=== PATIENT | female | born 1970 | race Two or more races ===

== ENCOUNTER 2017-08-04 06:27 | Emergency (ER) | payer MEDICAID, SELFPAY ==
[2017-08-04 06:29] VITALS: BP 133/86; PULSE 76; RESP 16; TEMP 36.8; O2SAT 100; BMI 29.9
--- NOTE | 2017-08-04 07:20 | ED.VISSUMM ---
- ER Visit Summary Date of Service: 08/04/17 Chief Complaint: [] Rash involving hands [place] History of Present Illness: The patient is a 46 F [] reports for the last week or so she has been rock hunting for [place] and had type proximal and polishing these rocks with cough for about a week or 2 she reports she developed some redness to her hands and now the skin has slightly become more irritated and she is constantly itching her hands and her forearms. This was fresh [place] there was no sore water or seawater she has no lesions elsewhere on her body just her upper extremities. She has no history of MRSA healthy individual no fever no cough no drainage the skin seems to peel but there is no blistering petechia or purpura she indicates she thought she saw few bugs coming out of these lesions but I cannot appreciate any bugs her chief complaint is that these lesions are quite itchy Physical Examination: [] She is in no distress her vital signs are unremarkable she is itching her hand she does have scattered red cowart small plaques measuring a few millimeters they are flat they are not tender she has full range of motion of all of her fingers. There is no petechia purpura blistering or breakdown there does seem to be a few areas where she has rubbed off the skin from itching again there is no drainage or warmth or signs of MRSA or infection that is obvious there is no signs of foreign body or any type of parasite or past Test Results: [] Emergency Department Course and Treatment: [] Long conversation with her I explained to her that exposure to water can predispose to many types of infectious types of etiologies is also a possibility this is related to staph or strep but there is no erythema just a red spots around her hands a few on her forearms at this time given the above of explained she will require more diagnostic management is nothing to culture, she will be started on Levaquin based on reference material recommendations, hydrocortisone ointment [id number] antihistamine such as Zyrtec or Claritin and she will follow-up with pick up man or her family physician and return for change in symptoms further she will avoid hunting for rocks avoid water her hands clean and dry Treatment Plan: [] Disposition: [] Home stable Impression: [] Nonspecific rash involving hands after [place] This note was generated with Dragon dictation software. It may contain incorrect words, spelling, and punctuation that were not noted in review of the chart prior to signing ED Disposition - Plan for ED Patient: Chief Complaint: Rash Referrals: [facility],Out of [Primary Care Provider] -
--- NOTE | 2017-08-04 07:23 | ED.DCSUM_ITS ---
- ER Visit Summary Date of Service: 08/04/17 Chief Complaint: [] Rash involving hands [place] History of Present Illness: The patient is a 46 F [] reports for the last week or so she has been rock hunting for MD and had type proximal and polishing these rocks with cough for about a week or 2 she reports she developed some redness to her hands and now the skin has slightly become more irritated and she is constantly itching her hands and her forearms. This was [place] there was no sore water or seawater she has no lesions elsewhere on her body just her upper extremities. She has no history of MRSA healthy individual no fever no cough no drainage the skin seems to peel but there is no blistering petechia or purpura she indicates she thought she saw few bugs coming out of these lesions but I cannot appreciate any bugs her chief complaint is that these lesions are quite itchy Physical Examination: [] She is in no distress her vital signs are unremarkable she is itching her hand she does have scattered red cowart small plaques measuring a few millimeters they are flat they are not tender she has full range of motion of all of her fingers. There is no petechia purpura blistering or breakdown there does seem to be a few areas where she has rubbed off the skin from itching again there is no drainage or warmth or signs of MRSA or infection that is obvious there is no signs of foreign body or any type of parasite or past Test Results: [] Emergency Department Course and Treatment: [] Long conversation with her I explained to her that exposure to water can predispose to many types of infectious types of etiologies is also a possibility this is related to staph or strep but there is no erythema just a red spots around her hands a few on her forearms at this time given the above of explained she will require more diagnostic management is nothing to culture, she will be started on Levaquin based on reference material recommendations, hydrocortisone ointment over-the- counter antihistamine such as Zyrtec or Claritin and she will follow-up with [employer] [facility] or her family physician and return for change in symptoms further she will avoid hunting for rocks avoid water her hands clean and dry Treatment Plan: [] Disposition: [] Home stable Impression: [] Nonspecific rash involving hands after [place] This note was generated with Dragon dictation software. It may contain incorrect words, spelling, and punctuation that were not noted in review of the chart prior to signing ED Disposition - Plan for ED Patient: Chief Complaint: Rash Referrals: [facility] Doctor,Out of [Primary Care Provider] -
--- NOTE | 2017-08-04 07:23 | ED.DEP ---
ED Disposition - Plan for ED Patient: Chief Complaint: Rash Instructions: Discharge Instructions for Cellulitis Prescriptions: Cetirizine HCl [Zyrtec] 10 mg PO DAILY #14 tab Levofloxacin [Levaquin] 750 mg PO DAILY 7 Days tab Hydrocortisone 1% Crm [Hytone] 1 applic TOPICAL BID #1 tube Referrals: [facility] Doctor,Out of [Primary Care Provider] -
--- NOTE | 2017-08-04 07:29 | ED.DEP ---
ED Disposition - Plan for ED Patient: Chief Complaint: Rash Instructions: Discharge Instructions for Cellulitis Prescriptions: Cetirizine HCl [Zyrtec] 10 mg PO DAILY #14 tab Levofloxacin [Levaquin] 750 mg PO DAILY 7 Days tab Hydrocortisone 1% Crm [Hytone] 1 applic TOPICAL BID #1 tube Referrals: [facility] Doctor,Out of [Primary Care Provider] - Chalo Currie MD [CONSULTING PHYSICIAN] -
[2017-08-04 07:32] VITALS: BP 147/100; PULSE 76; RESP 16; O2SAT 100
== END 2017-08-04 07:38 | disposition home or self-care (01) ==
PROVIDERS: Emergency Provider Emergency Medicine; Family Provider Nurse Practitioner Family; PCP Nurse Practitioner Family
DX: R21 Rash and other nonspecific skin eruption (principal)
CPT/HCPCS: 99282

== ENCOUNTER 2017-08-04 14:17 | Emergency (ER) | payer MEDICAID, SELFPAY ==
[2017-08-04 14:17] VITALS: BP 126/87; PULSE 77; RESP 16; TEMP 37; O2SAT 99; BMI 29.2
--- NOTE | 2017-08-04 14:54 | ED.VISSUMM ---
- ER Visit Summary Date of Service: 08/04/17 Chief Complaint: [] History of Present Illness: The patient is a 46 F [] Physical Examination: [] Test Results: [] Emergency Department Course and Treatment: [] Treatment Plan: [] Disposition: [] Impression: [] This note was generated with [employer] dictation software. It may contain incorrect words, spelling, and punctuation that were not noted in review of the chart prior to signing ED Disposition - Plan for ED Patient: Disposition: Home or Assisted Living Chief Complaint: Rash Diagnosis: Contact dermatitis Instructions: ED Dermatitis Contact Prescriptions: Prednisone 60 mg PO DAILY 5 Days #15 tab Referrals: Ashley Spencer, [facility] [Primary Care Provider] -
== END 2017-08-04 15:06 | disposition home or self-care (01) ==
PROVIDERS: Emergency Provider Emergency Medicine; Family Provider Nurse Practitioner Family; PCP Nurse Practitioner Family
DX: L25.9 Unspecified contact dermatitis, unspecified cause (principal)
CPT/HCPCS: 99282

== ENCOUNTER 2017-08-05 16:47 | Emergency (ER) | payer MEDICAID, SELFPAY ==
[2017-08-05 16:48] VITALS: BP 135/77; PULSE 73; RESP 28; TEMP 36.6; O2SAT 99; BMI 29.5
[2017-08-05 17:43] LABS: Absolute Lymphocyte Count 3.27 X10^3/ul (0.83-4.51); Absolute Neutrophil Count 3.1 X10^3/uL (2.0-7.7); Basophil# 0.01 X10^3/uL; Basophil% 0.1 % (0-1); Eosinophil# 0.21 X10^3/uL; Eosinophils% 2.9 % (0-5); Hematocrit 34.3 % (37-47); Hemoglobin 11.5 g/dl (12.0-15.0); Lymphocyte # 3.27 X10^3/ul (4.0); Lymphocyte % 45.3 % (19-41); Mean Corp Hgb Conc 33.5 g/gl (32-36); Mean Corpuscular Hgb 31.3 pg (27.0-32.0); Mean Corpuscular Volume 93.2 fL (81-99); Mean Platelet Vol. 9.8 fl (6.2-12.0); Monocyte# 0.63 X10^3/uL; Monocyte% 8.7 % (0-10); Neutrophil # 3.09 X10^3/uL (2.7-7.7); Neutrophil % 42.9 % (47-70); Platelet Count 210 K/mm3 (150-450); RBC Distribution Width CV 12.5 % (11.6-14.6); RBC Distribution Width SD 42.6 fl (35.1-43.9); Red Blood Count 3.68 M/mm3 (4.2-5.4); White Blood Count 7.2 K/mm3 (4.4-11.0)
[2017-08-05 17:49] LABS: POSITIVE COUNT NO; POSITIVE DIFFERENTIAL NO; POSITIVE MORPHOLOGY NO
[2017-08-05] MEDS: hydrOXYzine PAM 25 MG Capsule 50 MG PO (17:57)
--- NOTE | 2017-08-05 18:10 | ED.DCSUM_ITS ---
- ER Visit Summary Date of Service: 08/05/17 Chief Complaint: Patient has a rash she thinks there are parasites. History of Present Illness: The patient is a 46 F she thinks there are parasites in her skin, they are crawling in and out. She says there is very small and I cannot see them. She has no fever or chills. No chest pain shortness of breath no diarrhea. Physical Examination: She is tearful, she is not acutely psychotic but she is slightly delusional. She has multiple scratches of her skin but there are no insects, she says that certain substances bring them out but even after plicating her we were not able to see any insects. Emergency Department Course and Treatment: I did check a CBC there is no eosinophilia, I feel comfortable discharging her home with Vistaril and follow- up. Disposition: Discharged in stable condition Impression: Skin rash This note was generated with [employer] dictation software. It may contain incorrect words, spelling, and punctuation that were not noted in review of the chart prior to signing ED Disposition - Plan for ED Patient: Disposition: Home or Assisted Living Chief Complaint: General Illness Instructions: Understanding Delusional Disorders Prescriptions: Hydroxyzine Pamoate [Vistaril] 50 mg PO 4X/DAY PRN PRN #20 capsule PRN Reason: Itching Referrals: Ashley Spencer NP-C [Primary Care Provider] - 3-5 Days
== END 2017-08-05 18:14 | disposition home or self-care (01) ==
PROVIDERS: Emergency Provider Emergency Medicine; Family Provider Nurse Practitioner Family; PCP Nurse Practitioner Family
DX: R21 Rash and other nonspecific skin eruption (principal); E03.9 Hypothyroidism, unspecified; F31.9 Bipolar disorder, unspecified; Z79.899 Other long term (current) drug therapy
CPT/HCPCS: 85025; 99282

== ENCOUNTER → 2018-06-24 07:12 | Outpatient (CLI) | payer MEDICAID, SELFPAY ==
--- NOTE | 2018-06-24 12:07 | NEURO_ITS ---
NCS and/or EMG Patient Report Ordering Doctor: Kaleigh Brannon DATE OF SERVICE: 06/24/18 This is a bilateral upper extremity sensory and motor nerve conduction study performed on this 47-year-old female with a history of numbness weakness and pain for 6 months. Bilateral upper extremity sensory and motor nerve conduction studies performed demonstrating severe prolongation of the median motor and sensory distal latencies on the right side with reduction of amplitudes and conduction velocities. The median motor and sensory responses are also moderately slowed on the left side with intact amplitudes and conduction velocities. The ulnar motor and sensory and radial sensory responses are normal bilaterally. The rig ht median F wave latency is severely prolonged, the remainder of the F-wave latencies including the left median and bilateral ulnar responses are normal. Impression: Abnormal nerve conduction study of the bilateral upper extremities consistent with severe carpal tunnel syndrome on the right side, moderate on the left.
== END ==
PROVIDERS: Family Provider Nurse Practitioner Family; PCP Nurse Practitioner Family; Referring Provider Physician Assistant; Visit Provider Physician Assistant
DX: R20.2 Paresthesia of skin (principal)
CPT/HCPCS: 95911

== ENCOUNTER 2024-04-26 12:25 | Emergency (ER) | payer MEDICARE, MEDICAID, SELFPAY ==
[2024-04-26 12:26] VITALS: BP 121/88; PULSE 86; RESP 24; TEMP 36.3; O2SAT 100; BMI 23.0
--- NOTE | 2024-04-26 12:36 | CT_ITS ---
PROCEDURE: CT abdomen pelvis with IV contrast REASON FOR EXAM: Pain TECHNIQUE: Multiple contiguous axial images through the abdomen and pelvis were obtained after the administration of intravenous contrast. Two-dimensional coronal and sagittal reformatted images were reconstructed. Low-dose imaging technique was utilized. COMPARISON: None. FINDINGS: Lung bases are clear. Liver, spleen, pancreas and adrenal glands are intact. Gallbladder is satisfactory. No significant biliary ductal dilation. Kidneys enhance symmetrically. No suspicious renal mass, calculi or hydronephrosis. Urinary bladder is intact. Multiple fluid distended small bowel loops throughout the abdomen. Fluid is also present throughout the majority of the colon. No significant bowel wall thickening, obstruction or perienteric inflammation. Normal appendix. No pelvic free fluid. No free air. No abdominal aortic aneurysm or suspicious adenopathy. Superficial soft tissues are within normal limits. No acute osseous abnormality. CT/Abdomen/Pelvis W IV Cont ONLY IMPRESSION: Fluid distended large and small bowel loops without significant wall thickening or surrounding inflammation. Findings favor mild generalized enteritis. Reading Location: [facility]
[2024-04-26] MEDS: Ondansetron 4 MG/2 ML Vial IV (12:44)
[2024-04-26] MEDS: Morphine 4 MG/ML Syringe IV (12:44)
[2024-04-26] MEDS: Dicyclomine 20 MG/2 ML Vial IM (12:44)
--- NOTE | 2024-04-26 12:46 | EX.ED.DYSGE1 ---
HPI <KARRI Martino - Last Filed: 04/26/24 13:59> History of Present Illness Chief Complaint: Abd Pain Narrative Narrative: Patient is a 53-year-old female who currently is not taking any medication secondary to insurance issues. She does not have a PCP at this time. Patient she has history of severe fibromyalgia, difficulty with her bowels stated she cannot relieve herself of gas. Patient states that she has not seen a care provider in a long time. Over the last several hours, states she has had significant abdominal pain. Pay states she has had some of this in the past. She denies any fever or chills. She states this pain is so bad it makes her want to pass out. She does have history of hysterectomy, no other surgeries recently. Denies a blood in her stool or vomit. [facility] <KARRI Martino - Last Filed: 04/26/24 13:59> [facility] Medical History (Updated 04/26/24 @ 13:58 by KARRI Martino) Fibromyalgia Home Medications ?Medication ?Instructions ?Recorded ?Last Taken ?Type atorvastatin 20 mg tablet 20 mg PO QHS 08/04/17 08/04/17 History 20 MG baclofen 10 mg tablet 5 mg PO TID PRN BACK SPASM 08/04/17 08/05/17 History cetirizine 10 mg tablet 10 mg PO DAILY #14 tabs 08/04/17 08/05/17 Rx fluoxetine 20 mg capsule 20 mg PO DAILY 08/04/17 08/05/17 History hydrocortisone 1 % topical cream 1 applic topical BID #1 tube 08/04/17 08/05/17 Rx levofloxacin 750 mg tablet 750 mg PO DAILY 7 days 08/04/17 08/05/17 Rx levothyroxine 25 mcg tablet 25 mcg PO DAILY 08/04/17 08/05/17 History lorazepam 0.5 mg tablet 0.5 mg PO BID 08/04/17 08/05/17 History meloxicam 15 mg tablet 15 mg PO DAILY 08/04/17 08/05/17 History methocarbamol 500 mg tablet 500 mg PO TID PRN Spasms 08/04/17 08/05/17 History olanzapine 2.5 mg tablet 2.5 mg PO QHS 08/04/17 08/05/17 History prednisone 20 mg tablet 60 mg (3 x 20 mg) PO DAILY 5 days 08/04/17 08/05/17 Rx #15 tabs hydroxyzine pamoate 50 mg capsule 50 mg PO 4X/DAY PRN PRN Itching 08/05/17 Unknown Rx (Vistaril) ##20 dicyclomine 20 mg tablet 20 mg PO TID #20 tabs 04/26/24 Unknown Rx ondansetron 4 mg disintegrating 4 mg PO Q8H PRN PRN Nausea #10 tabs 04/26/24 Unknown Rx tablet Allergy/AdvReac Type Severity Reaction Status Date / Time No Known Allergies Allergy Verified 04/26/24 12:37 Social History Smoking Status: Former smoker ROS <DANIELLA MartinoC - Last Filed: 04/26/24 13:59> ROS ED ROS Narrative Constitutional: Negative for fever, chills, weight loss. Positive for weakness Eyes: Negative for vision loss, vision change, double vision ENT: Negative for any sore throat, ear pain, congestion Cardiovascular: Negative for any chest pain, tightness, palpitations Respiratory: Negative for any cough, sputum production, hemoptysis, dyspnea, dyspnea on exertion, orthopnea Gastrointestinal: Negative for any nausea, vomiting, diarrhea, constipation, blood in stool, blood in vomit. Positive for abdominal pain : Negative for any urinary frequency, dysuria, retention, blood in urine Muscle skeletal: Negative for any neck pain, back pain Neurological: Negative for any headache, syncope, dizziness Skin: Negative for any rashes, itching, abrasions, lacerations Psychiatric: Negative for any depression, anxiety, stress, suicidal ideation, homicidal ideation Hematologic: Negative for any excessive bruising, easy bleeding EXAM <KARRI Martino - Last Filed: 04/26/24 13:59> Physical Exam Narrative Exam Narrative: Vital signs reviewed. Patient is laying flat, patient is moaning. Patient is hyperventilating. Difficult to understand at times. HEET: Head normocephalic atraumatic, TMs clear bilaterally. Posterior pharynx is clear, dry mucous membranes. Nares clear bilaterally. Neck: Supple with no lymphadenopathy or tenderness. No signs of meningismus. Cardiac: Regular rate and rhythm no murmurs gallops or rubs, equal peripheral pulses bilaterally. Respiratory: Lungs clear to auscultation bilaterally. No chest tenderness. Abdomen: Soft, nondistended. No abdominal bruit or pulsatile masses. No hepatosplenomegaly. Negative for any peritoneal signs, hypoactive bowel sounds. Patient has no localization of pain on my examination. Extremities: No peripheral edema, no signs of gross trauma or deformity. Active full range of motion of all extremities. Neuro: Cranial nerves II through XII intact, no focal neurological deficits. Skin: Clean dry and intact with no rash, purpura, petechiae, vesicles or pustules. Backs/flank: No CVA tenderness, no midline spinal tenderness, no deformity. Psych: Normal mood and affect. No SI, HI or acute psychosis. Const Vital Signs: 04/26/24 12:26 Temperature 97.4 F L Temperature Source Axillary Pulse Rate 86 Respiratory Rate 24 H Blood Pressure 121/88 H Blood Pressure Mean 99 Pulse Ox 100 <Dr. Burton Plascencia DO - Last Filed: 04/26/24 14:11> Physical Exam Const Vital Signs: 04/26/24 12:26 Temperature 97.4 F L Temperature Source Axillary Pulse Rate 86 Respiratory Rate 24 H Blood Pressure 121/88 H Blood Pressure Mean 99 Pulse Ox 100 [facility] <KARRI Martino - Last Filed: 04/26/24 13:59> [facility] Lab Data Labs: Laboratory Results - last 24 hr 04/26/24 12:48 WBC 12.0 H RBC 4.82 Hgb 14.7 Hct 43.3 MCV 89.8 MCH 30.5 MCHC 33.9 RDW Std Deviation 39.5 RDW Coeff of Mallory 12.0 Plt Count 249 MPV 9.7 Immature Gran % (Auto) 0.500 Neut % (Auto) 83.1 H Lymph % (Auto) 7.8 L Canyon % (Auto) 6.9 Eos % (Auto) 1.2 Baso % (Auto) 0.5 Absolute Neuts (auto) 9.9 H Absolute Lymphs (auto) 0.93 Nucleated RBC % 0 Sodium 142 Potassium 4.1 Chloride 106 Carbon Dioxide 21.5 Anion Gap 14 BUN 18 Creatinine 0.78 Estim Creat Clear Calc 69.79 Est GFR (MDRD) Non-Af 92 BUN/Creatinine Ratio 22.8 H Glucose 100 H Lactic Acid < 1.0 Calcium 9.6 Total Bilirubin 0.38 AST 19 ALT 13 Alkaline Phosphatase 90 Total Protein 7.4 Albumin 4.5 Globulin 2.9 Albumin/Globulin Ratio 1.6 Lipase 22 Radiography Diagnostic Testing: Clinical Impression(s) from Imaging Studies Abdomen/Pelvis CT 04/26/24 12:36 IMPRESSION: Fluid distended large and small bowel loops without significant wall thickening or surrounding inflammation. Findings favor mild generalized enteritis. [facility] Treatment and Re-Evaluation :: Differential diagnosis includes however is not limited to: Bowel obstruction, pneumoperitoneum, acute on chronic abdominal pain, diverticulitis, appendicitis, constipation Patient appears slightly unkempt, patient is laying flat, continually moaning. Patient is a poor informant. Patient presents to the emergency department for severe abdominal pain. Patient was seen a full abdominal workup including basic labs, CMP, lipase, lactic acid. Patient received IV fluids, Zofran morphine, as well as IM Bentyl. CT scan of the abdomen pelvis with IV contrast will be obtained. Urinalysis will be obtained. Patient will need to be reevaluated. All radiologic examinations were read, reviewed by the emergency department attending. From these reads, a plan of care will be put in place. Patient's CBC for slight leukocytosis white blood count 12.0, patient's chemistries show 100 glucose, lactic was less than 1, lipase was 22. This was unremarkable. CT scan of the abdomen pelvis shows fluid distended large and small bowel loops without significant wall thickening or surrounding inflammation. Findings favor mild generalized enteritis. No suspicious renal mass. Negative for any obstruction or perienteric inflammation. On my reevaluation, patient was feeling improved. Patient is a pass a p.o. challenge. Patient be given Zofran, as well as Bentyl for home. She instructed to follow-up outpatient. All questions answered, stable for discharge <Dr. Burton Plascencia, DO - Last Filed: 04/26/24 14:11> [facility] Narrative Medical decision making narrative: I have personally performed a face to face assessment of the patient and have reviewed the ISAC Note. I performed a substantive portion of the visit including all aspects of the following. My gonzalez findings include: History: Patient presents with right lower abdominal pain that began today. Patient states it began rather suddenly. Patient states it has been constant. Patient states his main over the right lower abdomen. Patient admits to some nausea but denies any vomiting. Patient denies any fevers or chills. Patient states nothing makes her pain better and nothing makes it worse. Patient denies any dysuria or hematuria. Patient denies any neck or back pain. Exam: Vital signs are stable. Patient is afebrile. Patient is anxious on examination. Oral mucosa is pink and moist. Neck is supple. Trachea is midline. There is no JVD. Heart was regular rate and rhythm. Lungs are clear and equal bilaterally. Abdomen is soft. Bowel sounds are normal. There is right lower quadrant tenderness. There is no rebound or guarding noted. Cranial nerves II through XII are intact. There are no focal motor or sensory deficits noted. Medical Decision Making: Differential diagnosis includes appendicitis, bowel obstruction, perforation, constipation, colitis, urinary tract infection, dehydration, pancreatitis, and pyelonephritis. CBC will be obtained to assess for leukocytosis and anemia. Comprehensive metabolic profile will be obtained to assess for hepatic function, renal function, and electrolyte abnormality. Lipase will be obtained to assess for pancreatitis. Serum lactate will be obtained to assess for sepsis. Urinalysis will be obtained to assess for urinary tract infection and hematuria. CT scan of the abdomen and pelvis will be obtained to assess for bowel obstruction, perforation, pyelonephritis, and ureteral calculus. Patient was given IV fluids, morphine, Zofran, and Bentyl. CBC was reviewed. There is a slight leukocytosis of 12.0. The remainder was within normal limits. Comprehensive metabolic profile was reviewed and was within normal limits. Serum lactate was reviewed and was less than 1.0. Lipase was reviewed and was normal at 22. CT scan of the abdomen and pelvis was obtained. There are fluid-filled loops of large and small bowel. There is no evidence of obstruction. There is no wall thickening or surrounding inflammation. This is consistent with enteritis. This was interpreted by the radiologist was also independently reviewed by myself. Patient was advised of her findings. Patient was feeling better on reevaluation. Patient was instructed to start with a liquid diet and advance as tolerated. Patient was given prescriptions for Zofran and Bentyl. Patient was instructed to follow-up with her primary care physician in 5 to 7 days. Patient was instructed to return if worse in any way. Patient understood and was agreeable with the plan. All questions were answered. Lab Data Labs: Laboratory Results - last 24 hr 04/26/24 12:48 WBC 12.0 H RBC 4.82 Hgb 14.7 Hct 43.3 MCV 89.8 MCH 30.5 MCHC 33.9 RDW Std Deviation 39.5 RDW Coeff of Mallory 12.0 Plt Count 249 MPV 9.7 Immature Gran % (Auto) 0.500 Neut % (Auto) 83.1 H Lymph % (Auto) 7.8 L [place] % (Auto) 6.9 Eos % (Auto) 1.2 Baso % (Auto) 0.5 Absolute Neuts (auto) 9.9 H Absolute Lymphs (auto) 0.93 Nucleated RBC % 0 Sodium 142 Potassium 4.1 Chloride 106 Carbon Dioxide 21.5 Anion Gap 14 BUN 18 Creatinine 0.78 Estim Creat Clear Calc 69.79 Est GFR (MDRD) Non-Af 92 BUN/Creatinine Ratio 22.8 H Glucose 100 H Lactic Acid < 1.0 Calcium 9.6 Total Bilirubin 0.38 AST 19 ALT 13 Alkaline Phosphatase 90 Total Protein 7.4 Albumin 4.5 Globulin 2.9 Albumin/Globulin Ratio 1.6 Lipase 22 Radiography Diagnostic Testing: Clinical Impression(s) from Imaging Studies Abdomen/Pelvis CT 04/26/24 12:36 IMPRESSION: Fluid distended large and small bowel loops without significant wall thickening or surrounding inflammation. Findings favor mild generalized enteritis. Reading Location: [facility] Discharge Plan Triage Chief Complaint: Abd Pain ED Midlevel Provider: Jason Rocha ED Provider: Burton Plascencia Dx/Rx/DC Orders Clinical Impression: Enteritis, Abdominal pain Instructions: ED Gastritis (Adult), ED Gastroenteritis, Noninfectious Prescriptions: New ondansetron 4 mg tablet,disintegrating 4 mg PO Q8H PRN PRN (Reason: Nausea) Qty: 10 0RF dicyclomine 20 mg tablet 20 mg PO TID Qty: 20 0RF No Action methocarbamol 500 MG tablet 500 mg PO TID PRN (Reason: Spasms) atorvastatin 20 MG tablet 20 mg PO QHS meloxicam 15 MG tablet 15 mg PO DAILY olanzapine 2.5 MG tablet 2.5 mg PO QHS levothyroxine 25 MCG tablet 25 mcg PO DAILY lorazepam 0.5 MG tablet 0.5 mg PO BID baclofen 10 MG tablet 5 mg PO TID PRN (Reason: BACK SPASM) fluoxetine 20 MG capsule 20 mg PO DAILY levofloxacin 750 MG tablet 750 mg PO DAILY 7 Days 0RF cetirizine 10 MG tablet 10 mg PO DAILY Qty: 14 0RF hydrocortisone 1 APPLIC cream 1 applic TOPICAL BID Qty: 1 0RF prednisone 20 MG tablet 60 mg PO DAILY 5 Days Qty: 15 0RF hydroxyzine pamoate [Vistaril] 50 MG capsule 50 mg PO 4X/DAY PRN PRN (Reason: Itching) Qty: 20 0RF Primary Care Provider: Ashley Spencer NP Referrals: Ashley Spencer NP, [employer] [Primary Care Provider] - Activity Restrictions/Additional Instructions: Please follow-up outpatient. Use the nausea medicine, Bentyl for the cramping. Maintain a balanced diet. Print Language: Bulgarian Disposition Disposition: Home, Self Care
[2024-04-26] MEDS: 0.9% Normal Saline (1000mL) 1,000 ML 999 ML IV (12:47)
[2024-04-26 12:56] LABS: Absolute Lymphocyte Count 0.93 X10^3/uL (0.83-4.51); Absolute Neutrophil Count 9.9 X10^3/uL (2.0-7.7); Basophil# 0.06 X10^3/uL; Basophil% 0.5 % (0-1); Eosinophil# 0.14 X10^3/uL; Eosinophils% 1.2 % (0-5); Hematocrit 43.3 % (37-47); Hemoglobin 14.7 g/dL (12.0-15.0); Lymphocyte # 0.93 X10^3/ul (0.83-4.51); Lymphocyte % 7.8 % (19-41); Mean Corp Hgb Conc 33.9 g/dL (32-36); Mean Corpuscular Hgb 30.5 pg (27.0-32.0); Mean Corpuscular Volume 89.8 fL (81-99); Mean Platelet Vol. 9.7 fl (6.2-12.0); Monocyte# 0.83 X10^3/uL; Monocyte% 6.9 % (0-10); NRBC Flagged by Analyzer 0 % (0-5); Neutrophil # 9.94 X10^3/uL (2.7-7.7); Neutrophil % 83.1 % (47-70); Platelet Count 249 K/mm3 (150-450); RBC Distribution Width SD 39.5 fl (35.1-43.9); Red Blood Count 4.82 M/mm3 (4.2-5.4)
[2024-04-26 13:21] LABS: Lactic Acid < 1.0 mmol/L (0.0-2.0)
[2024-04-26 13:22] LABS: ALB/GLOB Ratio 1.6 RATIO (0.9-2.4); AST(SGOT) 19 U/L (<=31); Alanine Aminotransfer ALT/SGPT 13 U/L (<=34); Albumin, Serum 4.5 g/dL (3.5-5.0); Alkaline Phosphatase 90 U/L (35-104); Anion Gap 14 (5-15); BUN 18 mg/dL (4-19); BUN/Creat Ratio 22.8 RATIO (10-20); Calcium,Total 9.6 mg/dL (7.6-11.0); Carbon Dioxide 21.5 mmol/L (21.0-32.0); Chloride 106 mmol/L (98-108); Creatinine, Serum 0.78 mg/dL (0.70-1.20); EST Glomerular Filtration Rate 92 (>60); Estimated Creatinine Clearance 69.79 ml/min (50-250); Globulin 2.9 g/dL (2.2-4.2); Glucose 100 mg/dL (70-99); Lipase 22 U/L (13-75); Potassium 4.1 mmol/L (3.3-5.1); Protein, Total 7.4 g/dL (5.9-8.4); Sodium Level 142 mmol/L (133-145); Total Bilirubin 0.38 mg/dL (0.00-1.30)
[2024-04-26 14:09] VITALS: BP 131/94; PULSE 85; RESP 17; TEMP 36.4; O2SAT 99
== END 2024-04-26 14:17 | disposition home or self-care (01) ==
PROVIDERS: Nurse Practitioner; Emergency Provider Emergency Medicine; PCP Nurse Practitioner Family; Visit Provider Emergency Medicine
DX: K52.9 Noninfective gastroenteritis and colitis, unspecified (principal); Z87.891 Personal history of nicotine dependence
CPT/HCPCS: 74177; 80053; 83605; 83690; 85025; 96372; 96374; 96375; 99285; Q9967; A4216; J2405